=== PATIENT | female | born 1990 | race Caucasian/White ===

== ENCOUNTER 2020-09-22 20:10 | Emergency (ER) | payer MEDICAID ==
[~2020-09-22] VITALS: Ht 172.7 cm; Wt 51.0 kg
[2020-09-22 20:25] VITALS: BP 111/85
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
[2020-09-22 21:26] LABS: BASOPHILS % (AUTO) 1 % (0-1); EOSINOPHILS % (AUTO) 3 % (1-7); LYMPHOCYTES % (AUTO) 29 % (22-44); MD NO; MEAN CORPUSCULAR HEMOGLOBIN 31.9 pg (27.0-34.8); MEAN CORPUSCULAR HGB CONC 34.6 g/dL (32.4-35.8); MEAN PLATELET VOLUME 7.6 fL (7.4-10.4); MONOCYTES % (AUTO) 8 % (2-9); NEUTROPHILS % (AUTO) 59 % (42-75); PLATELET COUNT 300 x10^3/uL (130-400); RED BLOOD COUNT 4.35 x10^6/uL (3.82-5.3); RED CELL DISTRIBUTION WIDTH 13.7 % (9.6-15.2)
[2020-09-22 21:36] LABS: ALBUMIN 3.8 g/dL (3.4-5.0); ANION GAP 4 mmol/L (5-15); CALCIUM 9.2 mg/dL (8.5-10.1); CHLORIDE 110 mmol/L (98-107)
[2020-09-22 21:37] LABS: SALICYLATE LEVEL < 1.7 mg/dL (2.8-20.0)
== END 2020-09-22 22:00 | disposition home or self-care (01) ==
LOC: ED 20:22
DX: F41.1 Generalized anxiety disorder (principal)
CPT/HCPCS: 36415; 80048; 80299; 80320; 80329; 82040; 85025; 99283; G0480